=== PATIENT | female | born 1990 | race Caucasian/White ===

== ENCOUNTER → 2017-07-14 | Outpatient (CLI) | payer BC | END | disposition home or self-care (01) | LOC: C.PAPS 16:21 | PROVIDERS: ATTEND Obstetrics & Gynecology | DX: Z01.419 Encounter for gynecological examination (general) (routine) without abnormal findings (principal) ==

== ENCOUNTER 2017-10-03 11:48 | Emergency (ER) | payer BC ==
[~2017-10-03] VITALS: Ht 162.6 cm; Wt 60.6 kg
[2017-10-03 11:54] VITALS: TEMP 36.4; Ht 162.6 cm; Wt 60.6 kg
[2017-10-03 12:08] VITALS: O2SAT 98
[2017-10-03 12:30] LABS: MANUAL MICROSCOPIC REQUIRED? YES; URINE APPEARANCE CLEAR (CLEAR); URINE BILIRUBIN NEG (NEG); URINE COLOR YELLOW; URINE NITRITE NEG (NEG); URINE SPECIFIC GRAVITY 1.015 (1.000-1.030); UROBILINOGEN NEG (NEG)
[2017-10-03 12:31] LABS: REVIEW REQ? NO
[2017-10-03 12:34] LABS: PARTIAL THROMBOPLASTIN RATIO 1.1; PROTHROMBIN TIME (PATIENT) 10.2 SECONDS (9.0-12.0)
[2017-10-03] MEDS ORDERED: BCPILLS PO (12:35)
[2017-10-03 12:37] LABS: HEMATOCRIT 43.9 % (37-47); MEAN CELL VOLUME 90.1 fL (80-100); MEAN CORPUSCULAR HEMOGLOBIN 32.9 pg (25-34); MEAN CORPUSCULAR HGB CONC 36.4 g/dl (32-36); MEAN PLATELET VOLUME 12.2 fL (7.4-10.4); PLATELET COUNT 238 K/uL (130-400); RED BLOOD COUNT 4.87 M/uL (4.2-5.4); WHITE BLOOD COUNT 12.36 K/uL (4.8-10.8)
--- NOTE | 2017-10-03 12:37 | DIAGNOSTIC IMAGING REPORT ---
CHEST ONE VIEW PORTABLE CLINICAL HISTORY: Right inferior chest wall pain in right upper quadrant pain. COMPARISON STUDY: No previous studies for comparison. FINDINGS: The cardiac and mediastinal contours are normal. There is no evidence of focal pulmonary consolidation. There is no evidence of failure. No pleural effusions are visualized.[ No free intraperitoneal air is visualized. IMPRESSION: No active disease in the chest. Electronically signed by: Samy Nick M.D. 10/03/2017 12:36 PM Dictated Date/Time: 10/03/2017 12:35 PM
[2017-10-03 12:40] LABS: URINE BACTERIA NEG (NEG)
[2017-10-03 12:41] LABS: ZZUR CULT IF INDIC CLEAN CATCH YES
[2017-10-03 12:50] LABS: ALT/SGPT 32 U/L (12-78); BLOOD UREA NITROGEN 12 mg/dl (7-18); CALCIUM 9.1 mg/dl (8.5-10.1); CARBON DIOXIDE 27 mmol/L (21-32); CHLORIDE 104 mmol/L (98-107); GLUCOSE 96 mg/dl (70-99); MAGNESIUM 2.4 mg/dl (1.8-2.4); POTASSIUM 3.8 mmol/L (3.5-5.1); SODIUM 138 mmol/L (136-145)
[2017-10-03 12:55] LABS: ALB/GLOB RATIO 1.2 (0.9-2); ALKALINE PHOSPHATASE 61 U/L (45-117); AST/SGOT 25 U/L (15-37)
[2017-10-03 12:56] LABS: BASO ABS # 0.11 K/uL (0-0.2); BASOPHIL % 0.9 %; COMPLETE YES; EOSINOPHIL % 0.9 %; LYMPH ABS # 1.52 K/uL (1.2-3.4); LYMPHOCYTE % 12.3 %; NEUTROPHILS % 64.9 %; VARIANT LYM ABS # 1.73 K/uL
--- NOTE | 2017-10-03 13:07 | DIAGNOSTIC IMAGING REPORT ---
BILIARY ULTRASOUND CLINICAL HISTORY: Right upper quadrant pain. Right inferior rib pain. COMPARISON STUDY: No previous studies for comparison. FINDINGS: The pancreas appears sonographically normal. The liver appears sonographically normal. The gallbladder appears sonographically normal. There is no ductal dilatation. The common buttock measures 4 mm. There is no right-sided hydronephrosis. IMPRESSION: Normal biliary ultrasound. Electronically signed by: Samy Nick M.D. 10/03/2017 1:05 PM Dictated Date/Time: 10/03/2017 1:05 PM
[2017-10-03] MEDS ORDERED: OPTIRAY 320 IV PRN (14:30)
--- NOTE | 2017-10-03 15:16 | DIAGNOSTIC IMAGING REPORT ---
CHEST CTA for PULMONARY ARTERIES CT DOSE: 209.16 mGy.cm HISTORY: Right-sided rib pain. Elevated d-dimer. TECHNIQUE: Multiaxial CT images of the chest were performed following the intravenous administration of contrast to evaluate the pulmonary arteries. Maximal intensity projection images were also obtained. A dose lowering technique was utilized adhering to the principles of ALARA. COMPARISON STUDY: None. FINDINGS: There is a normal caliber thoracic aorta with no evidence for dissection. There is no evidence for pulmonary embolus. No pleural effusions. No pneumothorax. The liver and spleen are unremarkable. No mediastinal or hilar lymphadenopathy. The central airways are patent. The lungs are clear. There is 1 cm nodule within the upper inner quadrant of the left breast. IMPRESSION: 1. No evidence for pulmonary embolus. 2. A 1 cm nodule within the upper inner quadrant of the left breast. This favors a fibroadenoma. However, recommend follow-up imaging at a dedicated breast care center for further evaluation. Electronically signed by: Luis Alberto Witt M.D. 10/03/2017 3:14 PM Dictated Date/Time: 10/03/2017 2:58 PM
--- NOTE | 2017-10-03 15:20 | EMERGENCY ROOM VISIT NOTE ---
History First contact with patient: 11:59 Chief Complaint: GI ASSESSMENT Stated Complaint: SHARP PAIN IN RT SIDE, DIFFICULTY BREATHING Nursing Triage Summary: Patient c/o of RUQ pain sharp in nature. Patient reports pain began last night 3 hours after dinner. Denies n/v/d. History of Present Illness The patient is a 27 year old female who presents to the Emergency Room via private vehicle accompanied by male with complaints of "sharp pain in right side , difficulty breathing". The patient states that yesterday evening around 7:30 PM she consumed beef stroganoff. She states that around 10 PM she developed right-sided abdominal pain worse with laying on the left side. She rates the pain as a 5/10 but notes that worse with a deep breath or laying on her left side. She notes that she smokes cigars occasionally as well as is on control. She denies any recent surgeries, long travel or bone fractures. There is no nausea, vomiting. Review of Systems A complete 10-point Review of Systems was discussed with the patient, with pertinent positives and negatives listed in the History of Present Illness. All remaining Review of Systems questions can be considered negative unless otherwise specified. Past Medical/Surgical History No pertinent. Family History Heart disease. Social History Smoking Status: Never Smoker Patient lives locally with family. Current/Historical Medications Scheduled Control Pills ( Control Pills), 1 TAB PO DAILY Scheduled PRN Oxycodone Ir (Roxicodone Ir), 1-2 TAB PO Q4H PRN for Pain Physical Exam Vital Signs Date Time Temp Pulse Resp B/P (MAP) Pulse Ox O2 Delivery O2 Flow Rate FiO2 10/03/17 16:13 76 16 123/82 97 10/03/17 15:04 73 15 129/83 99 Room Air 10/03/17 14:03 78 17 119/83 98 Room Air 10/03/17 13:38 80 17 118/85 98 Room Air 10/03/17 12:31 124/82 10/03/17 12:26 94 17 140/91 97 Room Air 10/03/17 12:23 91 10/03/17 12:18 140/91 10/03/17 12:08 98 Room Air 10/03/17 11:54 36.4 106 17 146/89 98 Physical Exam VITAL SIGNS - Vital signs and nursing notes were reviewed. Stable. Afebrile. Tachycardic. GENERAL -27-year-old female appearing her stated age who is in no acute distress. Communicates well with provider and answers questions appropriately. SKIN - Without rashes. No petechial rashes. HEAD - NC/AT. EYES - Sclera anicteric. EARS - No deformities of external structures noted on gross examination bilaterally. NOSE - Midline and without cyanosis. No epistaxis or purulent drainage noted. MOUTH/OROPHARYNX - Without perioral cyanosis. LUNGS - Chest wall symmetric without accessory muscle use, intercostals retractions, or central cyanosis. Normal vesicular breath sounds CTA B/L. No wheezes, rales, or rhonchi appreciated. CARDIAC - RRR with S1/S2. No murmur, rubs, or gallops appreciated. ABDOMEN - Abdominal contour normal without pulsations or visible masses. BS normoactive all four quadrants. No tenderness, palpable masses, hepatosplenomegaly, or ascites noted. Negative Sy sign. There is no reproducible abdominal tenderness identified. Medical Decision & Procedures ER Provider Diagnostic Interpretation: CHEST CTA for PULMONARY ARTERIES CT DOSE: 209.16 mGy.cm HISTORY: Right-sided rib pain. Elevated d-dimer. TECHNIQUE: Multiaxial CT images of the chest were performed following the intravenous administration of contrast to evaluate the pulmonary arteries. Maximal intensity projection images were also obtained. A dose lowering technique was utilized adhering to the principles of ALARA. COMPARISON STUDY: None. FINDINGS: There is a normal caliber thoracic aorta with no evidence for dissection. There is no evidence for pulmonary embolus. No pleural effusions. No pneumothorax. The liver and spleen are unremarkable. No mediastinal or hilar lymphadenopathy. The central airways are patent. The lungs are clear. There is 1 cm nodule within the upper inner quadrant of the left breast. IMPRESSION: 1. No evidence for pulmonary embolus. 2. A 1 cm nodule within the upper inner quadrant of the left breast. This favors a fibroadenoma. However, recommend follow-up imaging at a dedicated breast care center for further evaluation. Electronically signed by: Luis Alberto Witt M.D. 10/03/2017 3:14 PM Dictated Date/Time: 10/03/2017 2:58 PM CHEST ONE VIEW PORTABLE CLINICAL HISTORY: Right inferior chest wall pain in right upper quadrant pain. COMPARISON STUDY: No previous studies for comparison. FINDINGS: The cardiac and mediastinal contours are normal. There is no evidence of focal pulmonary consolidation. There is no evidence of failure. No pleural effusions are visualized.[ No free intraperitoneal air is visualized. IMPRESSION: No active disease in the chest. Electronically signed by: Samy Nick M.D. 10/03/2017 12:36 PM Dictated Date/Time: 10/03/2017 12:35 PM [~ rep ct add3]] BILIARY ULTRASOUND CLINICAL HISTORY: Right upper quadrant pain. Right inferior rib pain. COMPARISON STUDY: No previous studies for comparison. FINDINGS: The pancreas appears sonographically normal. The liver appears sonographically normal. The gallbladder appears sonographically normal. There is no ductal dilatation. The common buttock measures 4 mm. There is no right-sided hydronephrosis. IMPRESSION: Normal biliary ultrasound. Electronically signed by: Samy Nick M.D. 10/03/2017 1:05 PM Dictated Date/Time: 10/03/2017 1:05 PM Laboratory Results 10/03/17 12:15 Red Blood Count 4.87, Mean Corpuscular Volume 90.1, Mean Corpuscular Hemoglobin 32.9, Mean Corpuscular Hemoglobin Concent 36.4, Mean Platelet Volume 12.2 10/03/17 12:15 Test 10/03/17 12:07 10/03/17 12:15 D-Dimer 540 ug/L FEU (0-500) White Blood Count 12.36 K/uL (4.8-10.8) Red Blood Count 4.87 M/uL (4.2-5.4) Hemoglobin 16.0 g/dL (12.0-16.0) Hematocrit 43.9 % (37-47) Mean Corpuscular Volume 90.1 fL (80-100) Mean Corpuscular Hemoglobin 32.9 pg (25-34) Mean Corpuscular Hemoglobin Concent 36.4 g/dl (32-36) Platelet Count 238 K/uL (130-400) Mean Platelet Volume 12.2 fL (7.4-10.4) RDW Standard Deviation 41.3 fL (36.4-46.3) RDW Coefficient of Variation 12.7 % (11.5-14.5) Neutrophils % (Manual) 64.9 % Lymphocytes % (Manual) 12.3 % Variant Lymphocytes % (manual) 14.0 % Monocytes % (Manual) 7.0 % Eosinophils % (Manual) 0.9 % Basophils % (Manual) 0.9 % Neutrophils # (Manual) 8.02 K/uL (1.4-6.5) Total Absolute Neutrophils 8.02 K/uL (1.4-6.5) Lymphocytes # (Manual) 1.52 K/uL (1.2-3.4) Absolute Variant Lymphocytes 1.73 K/uL Total Absolute Lymphocytes 3.25 K/uL (1.2-3.4) Monocytes # (Manual) 0.87 K/uL (0.11-0.59) Eosinophils # (Manual) 0.11 K/uL (0-0.5) Basophils # (Manual) 0.11 K/uL (0-0.2) Prothrombin Time 10.2 SECONDS (9.0-12.0) Prothromb Time International Ratio 1.0 (0.9-1.1) Activated Partial Thromboplast Time 28.8 SECONDS (21.0-31.0) Partial Thromboplastin Ratio 1.1 Urine Color YELLOW Urine Appearance CLEAR (CLEAR) Urine pH 6.0 (4.5-7.5) Urine Specific [place] 1.015 (1.000-1.030) Urine Protein NEG (NEG) Urine Glucose (UA) NEG (NEG) Urine Ketones NEG (NEG) Urine Occult Blood 3+ (NEG) Urine Nitrite NEG (NEG) Urine Bilirubin NEG (NEG) Urine Urobilinogen NEG (NEG) Urine Leukocyte Esterase NEG (NEG) Urine RBC 10-30 /hpf (0-4) Urine WBC 1-5 /hpf (0-5) Urine Epithelial Cells 0-5 /lpf (0-5) Urine Bacteria NEG (NEG) Urine Test NEG (NEG) Anion Gap 7.0 mmol/L (3-11) Est Creatinine Clear Calc Drug Dose 91.3 ml/min Estimated GFR () 117.1 Estimated GFR (Non- 101.0 BUN/Creatinine Ratio 15.0 (10-20) Calcium Level 9.1 mg/dl (8.5-10.1) Magnesium Level 2.4 mg/dl (1.8-2.4) Total Bilirubin 0.5 mg/dl (0.2-1) Aspartate Amino Transf (AST/SGOT) 25 U/L (15-37) Alanine Aminotransferase (ALT/SGPT) 32 U/L (12-78) Alkaline Phosphatase 61 U/L (45-117) Total Creatine Kinase 65 U/L (26-192) Creatine Kinase MB < 0.5 ng/ml (0.5-3.6) Creatine Kinase MB Ratio (0-3.0) Troponin I < 0.015 ng/ml (0-0.045) Total Protein 8.3 gm/dl (6.4-8.2) Albumin 4.6 gm/dl (3.4-5.0) Globulin 3.7 gm/dl (2.5-4.0) Albumin/Globulin Ratio 1.2 (0.9-2) Medical Decision Patient was seen and evaluated as above. She presents to us today with right upper quadrant pain. It is not reproducible on exam. I had her point at the location of pain and is actually underneath the right breast on the right anterior rib cage. The concern is that she could have a pulmonary embolism given her elevated d-dimer, tachycardia, smoking history as well as control use. Benefits versus risk of obtaining CT of the chest was discussed and the decision was made to scan. There was a fibroadenoma identified in the left breast of which she was informed to follow-up for with her TRACK REPAIR PERSON but no PE. Chest x-ray was also negative prior to that as well as the ultrasound of the gallbladder. There is slight leukocytosis. No anemia. Coags normal other than the elevated d-dimer. Metabolic panel reveals no emergent process. Total protein slightly high at 8.3. Urine reveals 3+ blood but she is currently menstruating. Urine test is negative. Bedside EKG reveals normal sinus rhythm. No ectopy or ischemic change. Patient declined pain medication throughout her stay. Case was discussed with the attending physician. She was felt stable for outpatient management. Patient was in agreement. She is to follow up with family doctor by calling their office later today as well as her TRACK REPAIR PERSON for the fibroadenoma. She'll be sent home on a short course of oxycodone immediate release for her pain. She was educated upon use and caution. She was educated upon management, educated upon worrisome symptoms in which to return, had questions answered prior to discharge, and was discharged home in good condition. In the evaluation and treatment of this patient the following differential diagnoses were entertained: Cholelithiasis, choledocholithiasis, ascending cholangitis, pulmonary embolism, pneumonia, pleurisy, costochondritis, contusion , pneumothorax, shingles, among others. [facility] Monitoring Program Search Results: patient reviewed within database, no issues identified Impression Primary Impression: Rib pain on right side Departure Information Dispostion Home / Self-Care Condition GOOD Prescriptions Oxycodone Ir (Roxicodone Ir) 5 Mg Tab 1-2 TAB PO Q4H Y for Pain, #20 TAB For Initial Treatment Prov: Venkatesh Hall PA-C 10/03/17 Referrals Franchesca Singh M.D. (PCP) Patient Instructions [facility] Additional Instructions You have been treated in the Emergency Department your Abdominal Pain. Laboratory results and imaging studies have ruled out any emergent causes for your abdominal pain which would warrant admission or surgery. You have been prescribed oxy IR to be used for pain control. This is a narcotic medication. You cannot drive or consume alcohol while on this medicine. This medicine should only be used for pain that cannot be controlled with over-the- counter pain medicines. For pain control, you can use the following [id number] medicines (if >12 yo): - Regular strength (325mg/tab) Tylenol (acetaminophen) 2 tabs every 4-6 hours as needed. Do not exceed 12 tablets in a 24 hour period. Avoid taking more than 3 grams (3000 mg) of Tylenol per day. This includes any other sources of acetaminophen you may take on a regular basis. - Regular strength (200 mg/tab) Advil (ibuprofen) 1-2 tabs every 4-6 hours as needed. Do not exceed a dose of 3200 mg per day. Drink plenty of water and stay well hydrated. As with any trip to the Emergency Department, you should follow-up with your Primary Care Provider from today's visit. Please follow with her TRACK REPAIR PERSON for the breast nodules we discussed. Return to the emergency department if your symptoms persist despite treatment plan outlined above or if the following symptoms occur: increased fevers, chills , worsening nausea/vomiting, blood in your stool or urine.
[2017-10-03] MEDS ORDERED: OXYC1TAB3 PO (15:57)
[2017-10-03 16:13] VITALS: BP 123/82; PULSE 76; O2SAT 97
== END 2017-10-03 16:12 | disposition home or self-care (01) ==
LOC: C.EDB 11:50 → C.EDC 16:12
DX: R07.81 Pleurodynia (principal); F17.290 Nicotine dependence, other tobacco product, uncomplicated; Z82.49 Family history of ischemic heart disease and other diseases of the circulatory system

== ENCOUNTER → 2017-12-25 | Outpatient (CLI) | payer BC ==
[~2017-12-25] MED LIST: BCPILLS PO; OXYC1TAB3 PO
--- NOTE | 2017-12-25 15:19 | MAMMOGRAPHY REPORT ---
ULTRASOUND OF LEFT BREAST: 12/25/2017 CLINICAL HISTORY: 27-year-old woman presents after a 1 cm nodule was incidentally identified in the l eft upper outer breast on a chest CT. No family history of breast cancer. No palpable concerns. COMPARISON: No prior exams were available for comparison. FINDINGS: Targeted ultrasound was performed in the upper inner quadrant of the left breast. In the 11:00 axis, 7 cm from the nipple, there is an oval circumscribed hypoechoic solid mass measuring 11.1 x 8.4 x 12.9 mm. This correlates with the CT finding and most likely represents a benign fibroadeno ma. However, long-term stability is needed to confirm benignity and therefore a six-month follow-up targeted left breast ultrasound is recommended to ensure stability. IMPRESSION: ACR-BI-RADS CATEGORY 3: PROBABLY BENIGN - FOLLOW-UP RECOMMENDED There is a benign-appearing solid circumscribed 12.9 mm mass in the 11:00 left breast, 7 cm from the nipple, thought to correlate with the CT finding. This most likely represents a benign fibroadenoma but a six-month follow-up targeted ultrasound is recommended to ensure stability. These results and recommendations were discussed with the patient at the time of the exam. Devora Leo M.D. ay/:12/25/2017 10:32:38 Bench Lay Out Technician: Maru ORTIZ)(Ange), [facility] letter sent: Follow Up Recommended 3 BI-RADS Code: ACR-BI-RADS Category 3: Probably Benign
== END | disposition home or self-care (01) ==
LOC: C.MAMM 09:44
PROVIDERS: ATTEND Obstetrics & Gynecology
DX: N63.21 Unspecified lump in the left breast, upper outer quadrant (principal)

== ENCOUNTER → 2018-06-29 | Outpatient (CLI) | payer BC ==
[~2018-06-29] MED LIST changes: -OXYC1TAB3 PO
--- NOTE | 2018-06-29 15:41 | MAMMOGRAPHY REPORT ---
ULTRASOUND OF LEFT BREAST: 06/29/2018 CLINICAL HISTORY: Six-month follow-up of left breast mass. COMPARISON: Comparison is made to exam dated: 12/25/2017 ultrasound - [facility]. Findings: Real-time, high-resolution targeted ultrasound was performed of the area of the previously seen left breast mass. In the left 11:00 breast, 7 cm from the nipple, again noted is an oval circum scribed hypoechoic solid mass, measuring 10 x 7 x 10 mm. The mass is not significantly changed in si ze compared to the December 2017 exam and is probably benign and likely represents a fibroadenoma. R ecommend another short interval follow-up in 6 months. IMPRESSION: ACR-BI-RADS CATEGORY 3: PROBABLY BENIGN Circumscribed 10 mm mass in the left 11:00 breast is stable dating back to the December 2017 exam, an d is probably benign and likely represents a fibroadenoma. Recommend another short interval follow-u p targeted ultrasound of the left breast in 6 months to confirm one year of stability. The patient was verbally notified of the results. Reshma Gould M.D. ah/:06/29/2018 08:13:36 Baby Sitter: Reshma Gould MD, [facility] letter sent: Follow Up Recommended 3 BI-RADS Code: ACR-BI-RADS Category 3: Probably Benign
== END | disposition home or self-care (01) ==
LOC: C.MAMM 08:00
PROVIDERS: ATTEND Obstetrics & Gynecology
DX: N63.22 Unspecified lump in the left breast, upper inner quadrant (principal)